=== PATIENT | male | born 1955 | race African-American/Black ===

== ENCOUNTER 2025-03-05 09:25 | Emergency (ER) | payer OTHER ==
[~2025-03-05] VITALS: Ht 182.9 cm; Wt 77.0 kg
[2025-03-05 09:28] VITALS: O2SAT 98
[2025-03-05] MEDS: SODIUM CHLORIDE 0.9% 1,000 ML IV ONE (09:46)
[2025-03-05 10:55] LABS: HEMATOCRIT. 22.7 % (42.0-52.0); HEMOGLOBIN. 7.4 g/dL (14.0-18.0); MEAN PLATELET VOLUME 9.8 fl (7.4-10.4); PLATELET 118 x1000/uL (130-400); RED BLOOD CELL COUNT 2.28 mill/uL (4.7-6.1); RED CELL DISTRIBUTION WIDTH 17.5 % (11.6-14.6)
[2025-03-05 11:11] LABS: INR 1.4
[2025-03-05 11:12] LABS: CREATININE 1.1 mg/dL (0.6-1.3); UREA NITROGEN BLOOD 37 mg/dL (9-23)
[2025-03-05 11:14] LABS: ASPARTATE AMINOTRANSFERASE 41 IU/L (<34); BILIRUBIN DIRECT 0.3 mg/dL (<=3.0); BILIRUBIN TOTAL 0.6 mg/dL (0.1-1.0); PROTEIN TOTAL 5.7 g/dL (6.0-8.3)
[2025-03-05 11:52] LABS: BAND% 12.0 % (1.0-6.0); EOSINOPHILS % MANUAL 24.0 % (0.0-5.0); LYMPHOCYTES % MANUAL 13.0 % (20.0-50.0); MONOCYTES % MANUAL 3.0 % (2.0-8.0); NEUTROPHILS % MANUAL 48.0 % (45.0-75.0)
[2025-03-05 11:53] LABS: PLATELET ESTIMATE DECREASED
[2025-03-05] MEDS: PANTOPRAZOLE 80 MG in SODIUM CHLORIDE 0.9% 100 ML IV ONE (13:02)
[2025-03-05] MEDS: OCTREOTIDE ACETATE 50 MCG/ML 1ML IV ONE (13:02)
[2025-03-05 13:36] VITALS: BP 117/92; PULSE 90; RESP 16; TEMP 36.5; O2SAT 98
== END 2025-03-05 14:41 | disposition short-term general hospital (02) ==
LOC: ER 09:25 → CMPBEDREQ 14:48
DX: K92.2 Gastrointestinal hemorrhage, unspecified (principal); K92.1 Melena; E11.9 Type 2 diabetes mellitus without complications; K74.60 Unspecified cirrhosis of liver; R07.9 Chest pain, unspecified
CPT/HCPCS: 99291; 96365; 96361; 96375; 80076; 80048; 83690; 85025; 85610; 85730; 86850; 86900; 86901; 86920; 36415; 71045; 93005; 36430; J2354; J2470; J7050; J7030; P9016